=== PATIENT | male | born 1945 | race Caucasian/White ===

== ENCOUNTER → 2022-04-04 11:06 | Outpatient (CLI) | payer MEDICARE, MEDICAID, SELFPAY ==
[2022-04-04 19:56] LABS: Alanine Aminotransferase 32 IU/L (<50); Albumin 4.4 g/dL (3.5-5.0); Albumin Globulin Ratio 1.5 (1.0-2.8); Alkaline Phosphatase 135 U/L (38-126); Aspartate Aminotransferase 54 IU/L (17-59); BUN Creatinine Ratio 20.7 (6-22); Bilirubin Total 0.8 mg/dL (0.2-1.3); Blood Urea Nitrogen 17 mg/dL (9-20); Calcium 9.7 mg/dL (8.4-10.2); Carbon Dioxide 27 mmol/L (22-32); Chloride 99 mmol/L (98-107); Cholesterol 248 mg/dL (140-199); Estimated Glomerular Filt Rate > 60 mL/min (>60); Glucose 273 mg/dL (80-110); HDL Cholesterol 58 mg/dL (40-60); HEMOLYSIS 26 (0-50); LDL Cholesterol Calculated 167 mg/dL (<100); Potassium 3.9 mmol/L (3.4-5.1); Sodium 139 mmol/L (137-145); Total Protein 7.4 g/dL (6.3-8.2); Triglycerides 117 mg/dL (35-150)
[2022-04-04 20:04] LABS: Hemoglobin A1C% w Est Avg Glu 12.4 % (4.0-6.0)
[2022-04-04 20:32] LABS: TSH w/ Reflex to FT4 2.47 uIU/mL (0.47-4.68)
[2022-04-04 21:06] LABS: Creatinine Urine Random 105.8 mg/dL
[2022-04-04 21:11] LABS: Microalbumi Creatinin Ratio Ur 41.5 ug/mg CR (<30); Microalbumin Urine Random 4.4 mg/dL (0-1.6)
== END ==
PROVIDERS: PCP Family Medicine; Visit Provider Family Medicine
DX: Z79.899 Other long term (current) drug therapy (principal); E03.9 Hypothyroidism, unspecified; E11.65 Type 2 diabetes mellitus with hyperglycemia; E78.5 Hyperlipidemia, unspecified; Z79.4 Long term (current) use of insulin
CPT/HCPCS: 80053; 80061; 82043; 82570; 83036; 84443